=== PATIENT | male | born 1965 | race Hispanic/Latino ===

== ENCOUNTER 2022-08-22 14:04 | Emergency (ER) | payer SELFPAY ==
--- OUTSIDE RECORDS SUMMARY | 2022-08-22 14:07 | XMS REPORT | Continuity of Care Document ---
:1965 Author Organization [facility] t Address [address] [place] [address] [address] [place] [address] Care Team Providers Name Role Phone Unavailable Unavailable Unavailable Payers Payer Name Policy Type Policy Number Effective Date Expiration Date S ource Problems This patient has no known problems. Allergies, Adverse Reactions, Alerts Allergy Allergy Status Severity Reaction(s) Onset Inactive Treating Comm ents Source Name Type Date Date Clinician No Known DA Active U 2018-03 [facility] 0 00:00: [address] Medications This patient has no known medications. Procedures This patient has no known procedures. Results Test Description Test Time Test Comments Results Result Comments Source CBC W/AUTO DIFF 2019-01-22 22:04:00 Test Item Value Reference Range Interpretation Comme nts WHITE BLOOD CELL (test code = WBC) 5.9 K/MM3 3.8-9.8 N RED BLOOD CELL (test code = RBC) 4.23 M/MM3 3.95-5.67 N HEMOGLOBIN (test code = HGB) 10.4 G/DL 12.4-16.7 L HEMATOCRIT (test code = HCT) 34.8 % 35.9-49.5 L MEAN CELL VOLUME (test code = MCV) 82 fL 81.7-96.1 N MEAN CELL HGB (test code = MCH) 24.6 pg 27.6-33.2 L MEAN CELL HGB CONCETRATION (test code = MCHC) 29.9 % 32.9-35. 5 L RED CELL DISTRIBUTION WIDTH (test code = RDW) 22.2 % 12.1-15. 2 H PLATELET COUNT (test code = PLT) 240 K/MM3 129-368 N MEAN PLATELET VOLUME (test code = MPV) 9.1 fl 7.4-10.4 N NEUTROPHIL % (test code = NT%) 48.1 % 43-75 N IMMATURE GRANULOCYTE % (test code = IG%) 0.2 % 0.0-2.0 N LYMPHOCYTE % (test code = LY%) 33.8 % 14-44 N MONOCYTE % (test code = MO%) 15.0 % 4-13 H EOSINOPHIL % (test code = EO%) 2.2 % 0-6 N BASOPHIL % (test code = BA%) 0.7 % 0-2 N NUCLEATED RBC % (test code = NRBC%) 0.0 % 0-1.0 N NEUTROPHIL # (test code = NT#) 2.81 K/mm3 2.0-7.6 N IMMATURE GRANULOCYTE # (test code = IG#) 0.01 x10 3/uL 0-0.03 N LYMPHOCYTE # (test code = LY#) 1.98 K/mm3 1.0-3.8 N MONOCYTE # (test code = MO#) 0.88 K/mm3 0.1-0.8 H EOSINOPHIL # (test code = EO#) 0.13 K/mm3 0.0-0.2 N BASOPHIL # (test code = BA#) 0.04 K/mm3 0.0-0.2 N NUCLEATED RBC # (test code = NRBC#) 0.00 K/mm3 0.0-0.1 N DIFFERENTIAL [id number] 22:04:00 Test Item Value Reference Range Interpretation Comments RBC MORPHOLOGY REQUIRED (test code = ABNORMAL RBCM) POLYCHROMASIA (test code = POLC) FEW NONE HYPOCHROMIA (test code = HYPO) MODERATE NONE ANISOCYTOSIS (test code = ANISO) MODERATE NONE MACROCYTOSIS (test code = MACR) FEW NONE TARGET CELLS (test code = TGT) FEW NONE PLATELET ESTIMATE (test code = ADEQUATE ADEQUATE PLTEST) PLATELET MORPHOLOGY (test code = NORMAL NORMAL PLTMORPH) - CT ABD PELVIS W/O [id number] 21:25:00 Patient Name: ANGI SALEEM Unit No: [id number] EXAMS: CPT CODE: [id number] CT ABD PELVIS W/O CONT 28430 Location: T 18 CT of the abdomen and CT of the pelvis , 01/22/19 CLINICAL HISTORY: Syncope, abdominal pain, emergency room presentation, intoxication COMPARISON EXAM : None of the abdomen or pelvis TECHNIQUE: A CT scan of the abdomen and pelvis conducted in the axial plane scanning utilizing contiguous 2.5 mm slice thickness from the lower lungs through the pubic symphysis without IV or enteric contrast with 2D coronal reformatted images acquired. This was acquired using MPR software on the CT workstation. Renal stone protocol was used. The examination was performed on an updated helical CTscan using utilizing low-dose radiation technique. Automatic exposure technique was utilized to reduce radiation dose. FINDINGS: No obstructive nephropathy or radio-opaque calculi seen. The liver demonstrates normal size, but has a somewhat serrated margins and prominence of the caudate lobe of concern for cirrhosis. No definite liver mass is seen on this noncontrast exam. The gallbladder appears to be mildly distended and with mild inflammatory changes adjacent to the gallbladder fossa of concern for possible cholecystitis. Consideration of sonography would be helpful for further assessment if indicated. Trace amount of fluid adjacent to the gallbladder fossa may be related to cirrhosis and liverfailure versus even related to duodenitis. Air-fluid levels identified in the right-sided colon. No significant biliary distention is seen. The spleen is normal in size without focal defects. The adrenal glands are unremarkable without masses. The pancreas demonstrates no abnormality on this non contrast exam. There are no peripancreatic fluid collections. Bowel gas pattern is nonobstructed and nonspe cific without pneumoperitoneum or pneumatosis. Assessment of bowel pathology is limited given lack of IV and enteric contrast w/o abscess or definite abnormality identified. Both the abdominal aorta and IVC are unremarkable. There is no significant adenopathy within the abdomen. The bases of the lungs are clear. [facility] NAME: ANGI SALEEM [id number] PHYS: [place] [address] : 1965 AGE: 53 SEX: M LOC: SCAR PHONE #: [phone] EXAM DATE: 01/22/2019 STATUS: REG ER FAX #: [phone] RAD #: D/C DT PAGE 1 Signed Report (CONTINUED) Patient Name: ANGI SALEEM Unit No: [id number] EXAMS: CPT CODE: [id number] CT ABD PELVIS W/O CONT 32313 (Continued) The pelvic contents are unremarkable without mass. No focal fluid collections or adenopathy. IMPRESSION: Findings of concern for possible cirrhosis without definite liver mass. The gallbladder is mildly distended with questionable pericholecystic inflammatory changes. Consideration gallbladder sonography if indicated may be helpful for further assessment Electronically Signedby Mayco Mayorga MD on 01/22/2019 at 2124 Reported and signed by: Mayco Mayorga MD CC: Amari Barron MD Technologist: Donna Ty RT(R)(CT); Oscar Fairchild CTDI: DLP: Trnscrpt: 01/22/2019 (2124) DominiqueDAS6 MAD[facility] Yee NAME: ANGI SALEEM PHYS: [place] [address] : 1965 AGE: 53 SEX: M LOC: [employer] PHONE #: [phone] EXAM DATE: 01/22/2019 STATUS: REG ER FAX #: [phone] RAD #: D/C DT PAGE 2 Signed Report Patient Name: ANGI SALEEM Unit No: [id number] EXAMS: CPT CODE: [id number] CT ABD PELVIS W/O CONT 41047 (Continued) Orig Print D/T: S: 01/22/2019 (2127) [facility] NAME: ANGI SALEEM PHYS: MIKEGABBY[place] [address] : 1965 AGE: 53 SEX: M LOC: [employer] PHONE #: [phone] EXAM DATE: 01/22/2019 STATUS: REG ER FAX #: RAD #: D/C DT PAGE 3 Signed Report- CT CHEST W/O [id number] 21:20:00 Patient Name: ANGI SALEEM Unit No: [id number] EXAMS: CPT CODE: [id number] CT CHEST W/O CONTRAST 90512 Location: T18 Chest CT , 01/22/19 TECHNIQUE: Chest CT without IV contrast was performed on a helical scanner. Contiguous direct 5mm axial slice thickness acquired, scanning from thoracic inlet through the diaphragms.. The examination was performed on updated helical CT scanner utilizing low-dose radiation technique. Automatic exposure control was utilized to reduce radiation dosage CLINICAL HISTORY: Syncope, intoxication. Emergency room presentation, chest pain COMPARISON EXAMS: Chest x-ray exam of 01/22/19 FINDINGS: Examination of the lung parenchyma unremarkable. No endobronchial lesion orpleura- based abnormality is seen. No infiltrates are identified. No pathological mediastinal or hilar adenopathy is not seen. Heart size within normal limits. No cardiac decompensation seen. Upper abdominal structures visualized are unremarkable. IMPRESSION: No acute cardiopulmonary process at 2119 Reported and signed by: Mayco Mayorga MD CC: Amari Barron MD Technologist: RT Renuka(R)(CT); Oscar Fairchild CTDI: DLP: Trnscrpt: 01/22/2019 (2119) t.SDR.DAS6 [facility] NAME: ANGI SALEEM [id number] PHYS: [place] [address] : 1965 AGE: 53 SEX: M LOC: [employer] PHONE #: [phone] EXAM DATE: 01/22/2019 STATUS: REG ER FAX #: [phone] RAD #: D/C DT PAGE 1 Signed Report Patient Name: ANGI SALEEM Unit No: [id number] EXAMS: CPT CODE: [id number] CT CHEST W/O CONTRAST 35166 (Continued) Orig Print D/T: S: 01/22/2019 (2122) [facility] NAME: ANGI SALEEM PHYS: [place] [address] : 1965 AGE: 53 SEX: M LOC: SCAR PHONE #: [phone] EXAM DATE: 01/22/2019 STATUS: REGER FAX #: [phone] RAD #: D/C DT PAGE 2 Signed Report- CT HEAD/BRAIN W/O CONT 2019-01-22 21:14:00 Patient Name: ANGI SALEEM Unit No: [id number] EXAMS: CPT CODE: [id number] CT HEAD/BRAIN W/O CONT 89619 CLINICAL HISTORY: Syncope, intoxication. CT brain, unenhanced. Reformatted sagittal and coronal images. COMPARISON: None. Automated exposure control, iterative reconstruction technique, and/or adjustment of mA and/or kV according to patient's size was utilized for optimum radiation dose reduction. An unenhanced study of the brain was performed. The cortical pattern is symmetric. No focal areasof edema or hemorrhage.. No hemorrhage, mass effect, or findings of CVA can be seen. No evidence of ventricular shift. The posterior fossa structures appear to be intact. Bone window settings do not show any evidence of skull fracture. Visualized sinuses appear to be clear. . IMPRESSION: No acute appearing intracranial abnormality. Location: U19 at 2114 Reported and signed by: Kevin Valentin MD CC: Amari Barron MD Technologist: RT Renuka(R)(CT); Oscar Fairchild CTDI: DLP: Trnscrpt: 01/22/2019 (2113) [facility] NAME: ANGI SALEEM [id number] PHYS: [place] [address] : 1965 AGE: 53 SEX: M LOC: SCAR PHONE #: [phone] EXAM DATE: 01/22/2019 STATUS: REG ER FAX #: [phone] RAD #: D/C DT PAGE 1 Signed Report Patient Name: ANGI SALEEM Unit No: [id number] EXAMS: CPT CODE: [id number] CT HEAD/BRAIN W/O CONT 11237 (Continued) Orig Print D/T: S: 01/22/2019 (2116) [facility] NAME: ANGI SALEEM [id number] PHYS: CAROL Oreillyyvon[place] [address] : 1965 AGE: 53 SEX: M LOC: [facility] PHONE #: [phone] EXAM DATE: 01/22/2019 STATUS: REG ER FAX #: [phone] RAD #: D/C DT PAGE 2 Signed Report- CT C- SPINE W/O [id number] 21:05:00 Patient Name: ANGI SALEEM Unit No: [id number] EXAMS: CPT CODE: [id number] CT C-SPINE W/O CONT 45540 EXAM: - CT C- SPINE W/O CONT HISTORY: SYNCOPE Location code:C3 TECHNIQUE: Axial tomograms throughthe cervical spine were obtained without intravenous contrast. Sagittal and coronal reformatted images are provided. One or more of the following dose reduction techniques were used: Automated exposurecontrol, adjustment of the mA and/or kV according to patient size, and/or utilization of iterative re construction technique. DLP: 503.33 mGy-cm. COMPARISON: None available time of interpretation. FINDINGS: Vertebral heights and alignment are maintained. No acute fracture or subluxation. The prevertebral soft tissues are within normal limits. The visualized soft tissues of the neck show no significant abnormalities. Degenerative disc disease and facet arthropathy is present at multiple levels. IMPRESSION: 1. No acute osseous abnormality with other findings as above. at 2105 Reported and signed by: Piero Hernandez MD CC: Aamri Barron MD Technologist: RT Renuka(R)(CT); Oscar Fairchild CTDI: DLP: Trnscrpt: 01/22/2019 (2104) Cedric.CB5 [facility] NAME: ANGI SALEEM [id number] PHYS: CAROL [place] [address] : 1965 AGE: 53 SEX: M LOC: [employer] PHONE #: [phone] EXAM DATE: 01/22/2019 STATUS: REG ER FAX #: [phone] RAD #: D/C DT PAGE 1 Signed Report Patient Name: ANGI SALEEM Unit No: [id number] EXAMS: CPT CODE: [id number] CT C-SPINE W/O CONT 97881 (Continued) Orig Print D/T: S: 01/22/2019 (2108) [facility] NAME: ANGI SALEEM [id number] PHYS: [place] [address] : 1965 AGE: 53 SEX: M LOC: SCAR PHONE #: [phone] EXAM DATE: 01/22/2019 STATUS: REG ER FAX #: [phone] RAD #:D/C DT PAGE 2 Signed ReportBASIC METABOLIC PANEL 2019-01-22 20:42:00 Test Item Value Reference Range Interpretation Comments SODIUM (test code = 142 MMOL/L 137-145 N NA) POTASSIUM (test code = 3.9 MMOL/L 3.5-5.1 N K) CHLORIDE (test code = 108 MMOL/L 98-107 H CL) CARBON DIOXIDE (test 22 MMOL/L 22-30 N code = CO2) GLUCOSE (test code = 141 MG/DL 74-106 H GLU) BLOOD UREA NITROGEN 3 MG/DL 9-20 L (test code = BUN) GLOMERULAR FILTRATION > 60 Report ing units: RATE (test code = GFR) ml/mi n/1.73 m2 (Modified MDRD Formula)Referen ce Range: > or = 6 0 ml/min/1.73 m2 CREATININE (test code 0.50 MG/DL 0.66-1.25 L = CREAT) CALCIUM (test code = 8.7 MG/DL 8.4-10.2 N CA) NT PRO-BRAIN NATRIURETIC [id number] 20:42:00 Test Item Value Reference Range Interpretation Comments NT PRO-BRAIN 33.3 pg/mL 0-125 N ------ NATRIURETIC PEPTI (test code = PROBNP) -- NT P RO-BNP IS THE REPLACEMENT ASS AY FOR BNP. ------ ------ -- [id number] 20:42:00 Test Item Value Reference Range Interpretation Comments TROPONIN-I (test code = TROPI) < 0.012 NG/ML 0.012-0.033 L [id number] 20:42:00 Test Item Value Reference Range Interpretation Comments ALCOHOL (test code = 262.0 MG/DL <10 HH CALLED TO ROLY Tejeda [facility]) & READBACK ON 01/22/19 AT 203 4 BY Nii Rea - XR SHOULDER 2+V [id number] 20:42:00 Patient Name: ANGI SALEEM Unit No: [id number] EXAMS: CPT CODE: [id number] XR SHOULDER 2+[place] [address] LEFT SHOULDER 3 VIEWS LOCATION: R16 CLINICAL HISTORY: Syncope. COMPARISON: No previous exam available. FINDINGS: No acute fracture, dislocation, or radiopaque foreign body is found involving the left shoulder. The left humerus is well-aligned with respect to the glenoid. IMPRESSION: No acute osseous abnormality involving the left shoulder. [id number] Reported and signed by: Mariya Reynoso MD CC: Amari Barron MD Technologist: Mague Zuñiga, RT(R) Transcrpt Date/Tm/Trnsp: 01/22/2019 (2041) Cedric.TYSONL Orig Print D/T: S: 01/22/2019 (2044) [facility] NAME: ANGI SALEEM [id number] PHYS: [place] [address] : 1965 AGE: 53 SEX: M LOC: SCAR PHONE #: [phone] EXAM DATE: 01/22/2019 STATUS: REG ER FAX #: [phone] RADIOLOGY NO: PAGE 1 Signed Report - XR CHEST [id number] 20:41:00 Patient Name: ANGI SALEEM Unit No: [id number] EXAMS: CPT CODE: [id number] XR CHEST 1V 15386 APVIEW OF THE CHEST LOCATION: R16 CLINICAL HISTORY: Syncope. COMPARISON: No previous exam available. FINDINGS: The cardiomediastinal shadow is within normal limits. The lungs are clear. No pleural fluids. No acute bony abnormality is found. IMPRESSION: Unremarkable radiographic study of the chest. at 2040 Reported and signed by: Mariya Reynoso MD CC:Amari Barron MD Technologist: Mague Zuñiga, RT(R) Transcrpt Date/Tm/Trnsp: 01/22/2019 (2040) t.SDR.JSL Orig Print D/T: S: 01/22/2019 (2043) [facility] NAME: ANGI SALEEM [id number] PHYS: [place] [address] : 1965 AGE: 53 SEX: M LOC: SCAR PHONE #: [phone] EXAM DATE: 01/22/2019 STATUS: [facility] ER FAX #: [phone] RADIOLOGY NO: PAGE 1 Signed ReportBASIC METABOLIC [id number] 20:39:00 Test Item Value Reference Range Interpretation Comments SODIUM (test code = 142 MMOL/L 137-145 N NA) POTASSIUM (test code = 3.9 MMOL/L 3.5-5.1 N K) CHLORIDE (test code = 108 MMOL/L 98-107 H CL) CARBON DIOXIDE (test 22 MMOL/L 22-30 N code = CO2) GLUCOSE (test code = 141 MG/DL 74-106 H GLU) BLOOD UREA NITROGEN 3 MG/DL 9-20 L (test code = BUN) GLOMERULAR FILTRATION > 60 Report ing units: RATE (test code = GFR) ml/mi n/1.73 m2 (Modified MDRD Formula)Referen ce Range: > or = 6 0 ml/min/1.73 m2 CREATININE (test code 0.50 MG/DL 0.66-1.25 L = CREAT) CALCIUM (test code = 8.7 MG/DL 8.4-10.2 N CA) NT PRO-BRAIN NATRIURETIC [id number] 20:39:00 Test Item Value Reference Range Interpretation Comments NT PRO-BRAIN 33.3 pg/mL 0-125 N ------ NATRIURETIC PEPTI (test code = PROBNP) -- NT P RO-BNP IS THE REPLACEMENT ASS AY FOR BNP. ------ ------ -- [id number] 20:39:00 Test Item Value Reference Range Interpretation Comments TROPONIN-I (test code = TROPI) NG/ML 0.0-0.045 [id number] 20:39:00 Test Item Value Reference Range Interpretation Comments ALCOHOL (test code = 262.0 MG/DL <10 HH CALLED TO ROLY Tejeda [facility]) & READBACK ON 01/22/19 AT 203 4 BY Nii Rea - XR HUMERUS 2+V [id number] 20:38:00 Patient Name: ANGI SALEEM Unit No: [id number] EXAMS: CPT CODE: [id number] XR HUMERUS 2+[place] [address] Location code: B2 Right humerus 2 views Indication: SYNCOPE Comparison: none Findings: No evidence of fracture, subluxation or dislocation. Soft tissues are unremarkable. Impression: 1. Normal exam. at 2037 Reported and signed by: Jayesh Cevallos M.D. CC: Amari Braron MD Technologist: Mgaue Zuñiga RT(R) Transcrpt Date/Tm/Trnsp: 01/22/2019 (2037) [email or web address] Orig Print D/T: S: 01/22/2019 (2040) [facility] NAME:ANGI SALEEM [address] PHYS: NEVAEHNadia Teresita [place]rice[place] [address] : 1965 AGE: 53 SEX: M LOC: SCAR PHONE #: [phone] EXAM DATE: 01/22/2019 STATUS: PRE ER FAX #: [phone] RADIOLOGY NO: PAGE 1 Signed ReportBASIC METABOLIC [id number] 20:35:00 Test Item Value Reference Range Interpretation Comments SODIUM (test code = 142 MMOL/L 137-145 N NA) POTASSIUM (test code = 3.9 MMOL/L 3.5-5.1 N K) CHLORIDE (test code = 108 MMOL/L 98-107 H CL) CARBON DIOXIDE (test 22 MMOL/L 22-30 N code = CO2) GLUCOSE (test code = 141 MG/DL 74-106 H GLU) BLOOD UREA NITROGEN 3 MG/DL 9-20 L (test code = BUN) GLOMERULAR FILTRATION > 60 Report ing units: RATE (test code = GFR) ml/mi n/1.73 m2 (Modified MDRD Formula)Referen ce Range: > or = 6 0 ml/min/1.73 m2 CREATININE (test code 0.50 MG/DL 0.66-1.25 L = CREAT) CALCIUM (test code = 8.7 MG/DL 8.4-10.2 N CA) NT PRO-BRAIN NATRIURETIC [id number] 20:35:00 Test Item Value Reference Range Interpretation Comments NT PRO-BRAIN NATRIURETIC PEPTI (test pg/mL 0-125 code = PROBNP) [id number] 20:35:00 Test Item Value Reference Range Interpretation Comments TROPONIN-I (test code = TROPI) NG/ML 0.0-0.045 [id number] 20:35:00 Test Item Value Reference Range Interpretation Comments ALCOHOL (test code = 262.0 MG/DL <10 HH CALLED TO ROLY Tejeda [facility]) & READBACK ON 01/22/19 AT 203 4 BY Nii Rea BASIC METABOLIC [id number] 20:29:00 Test Item Value Reference Range Interpretation Comments SODIUM (test code = 142 MMOL/L 137-145 N NA) POTASSIUM (test code = 3.9 MMOL/L 3.5-5.1 N K) CHLORIDE (test code = 108 MMOL/L 98-107 H CL) CARBON DIOXIDE (test 22 MMOL/L 22-30 N code = CO2) GLUCOSE (test code = MG/DL 74-106 GLU) BLOOD UREA NITROGEN MG/DL 9-20 (test code = BUN) GLOMERULAR FILTRATION > 60 Report ing units: RATE (test code = GFR) ml/mi n/1.73 m2 (Modified MDRD Formula)Referen ce Range: > or = 6 0 ml/min/1.73 m2 CREATININE (test code 0.50 MG/DL 0.66-1.25 L = CREAT) CALCIUM (test code = MG/DL 8.7-9.7 CA) NT PRO-BRAIN NATRIURETIC [id number] 20:29:00 Test Item Value Reference Range Interpretation Comments NT PRO-BRAIN NATRIURETIC PEPTI (test pg/mL 0-125 code = PROBNP) [id number] 20:29:00 Test Item Value Reference Range Interpretation Comments TROPONIN-I (test code = TROPI) NG/ML 0.0-0.045 [id number] 20:29:00 Test Item Value Reference Range Interpretation Comments ALCOHOL (test code = ALC) MG/DL <10 BASIC METABOLIC [id number] 20:27:00 Test Item Value Reference Range Interpretation Comments SODIUM (test code = NA) 142 MMOL/L 137-145 N POTASSIUM (test code = K) 3.9 MMOL/L 3.5-5.1 N CHLORIDE (test code = CL) 108 MMOL/L 98-107 H CARBON DIOXIDE (test code = CO2) MMOL/L 22-30 GLUCOSE (test code = GLU) MG/DL 74-106 BLOOD UREA NITROGEN (test code = MG/DL 9-20 BUN) GLOMERULAR FILTRATION RATE (test code = GFR) CREATININE (test code = CREAT) MG/DL 0.66-1.25 CALCIUM (test code = CA) MG/DL 8.7-9.7 NT PRO-BRAIN NATRIURETIC [id number] 20:27:00 Test Item Value Reference Range Interpretation Comments NT PRO-BRAIN NATRIURETIC PEPTI (test pg/mL 0-125 code = PROBNP) [id number] 20:27:00 Test Item Value Reference Range Interpretation Comments TROPONIN-I (test code = TROPI) NG/ML 0.0-0.045 [id number] 20:27:00 Test Item Value Reference Range Interpretation Comments ALCOHOL (test code = ALC) MG/DL <10 BASIC METABOLIC [id number] 20:26:00 Test Item Value Reference Range Interpretation Comments SODIUM (test code = NA) MMOL/L 137-145 POTASSIUM (test code = K) MMOL/L 3.5-5.1 CHLORIDE (test code = CL) 108 MMOL/L 98-107 H CARBON DIOXIDE (test code = CO2) MMOL/L 22-30 GLUCOSE (test code = GLU) MG/DL 74-106 BLOOD UREA NITROGEN (test code = MG/DL 9-20 BUN) GLOMERULAR FILTRATION RATE (test code = GFR) CREATININE (test code = CREAT) MG/DL 0.66-1.25 CALCIUM (test code = CA) MG/DL 8.7-9.7 NT PRO-BRAIN NATRIURETIC [id number] 20:26:00 Test Item Value Reference Range Interpretation Comments NT PRO-BRAIN NATRIURETIC PEPTI (test pg/mL 0-125 code = PROBNP) [id number] 20:26:00 Test Item Value Reference Range Interpretation Comments TROPONIN-I (test code = TROPI) NG/ML 0.0-0.045 [id number] 20:26:00 Test Item Value Reference Range Interpretation Comments ALCOHOL (test code = ALC) MG/DL <10 CBC W/AUTO [id number] 20:18:00 Test Item Value Reference Range Interpretation Comments WHITE BLOOD CELL (test code = 5.9 K/MM3 3.8-9.8 N WBC) RED BLOOD CELL (test code = 4.23 M/MM3 3.95-5.67 N RBC) HEMOGLOBIN (test code = HGB) 10.4 G/DL 12.4-16.7 L HEMATOCRIT (test code = HCT) 34.8 % 35.9-49.5 L MEAN CELL VOLUME (test code = 82 fL 81.7-96.1 N MCV) MEAN CELL HGB (test code = MCH) 24.6 pg 27.6-33.2 L MEAN CELL HGB CONCETRATION 29.9 % 32.9-35.5 L (test code = MCHC) RED CELL DISTRIBUTION WIDTH 22.2 % 12.1-15.2 H (test code = RDW) PLATELET COUNT (test code = 240 K/MM3 129-368 N PLT) MEAN PLATELET VOLUME (test code 9.1 fl 7.4-10.4 N = MPV) NEUTROPHIL % (test code = NT%) 48.1 % 43-75 N IMMATURE GRANULOCYTE % (test 0.2 % 0.0-2.0 N code = IG%) LYMPHOCYTE % (test code = LY%) 33.8 % 14-44 N MONOCYTE % (test code = MO%) 15.0 % 4-13 H EOSINOPHIL % (test code = EO%) 2.2 % 0-6 N BASOPHIL % (test code = BA%) 0.7 % 0-2 N NUCLEATED RBC % (test code = 0.0 % 0-1.0 N NRBC%) NEUTROPHIL # (test code = NT#) 2.81 K/mm3 2.0-7.6 N IMMATURE GRANULOCYTE # (test 0.01 x10 3/uL 0-0.03 N code = IG#) LYMPHOCYTE # (test code = LY#) 1.98 K/mm3 1.0-3.8 N MONOCYTE # (test code = MO#) 0.88 K/mm3 0.1-0.8 H EOSINOPHIL # (test code = EO#) 0.13 K/mm3 0.0-0.2 N BASOPHIL # (test code = BA#) 0.04 K/mm3 0.0-0.2 N NUCLEATED RBC # (test code = 0.00 K/mm3 0.0-0.1 N NRBC#) DIFFERENTIAL [id number] 20:18:00 Test Item Value Reference Range Interpretation Comments RBC MORPHOLOGY REQUIRED (test code = RBCM) PLATELET ESTIMATE (test code = PLTEST) ADEQUATE PLATELET MORPHOLOGY (test code = NORMAL PLTMORPH) CBC W/AUTO [id number] 20:18:00 Test Item Value Reference Range Interpretation Comments WHITE BLOOD CELL (test code = 5.9 K/MM3 3.8-9.8 N WBC) RED BLOOD CELL (test code = 4.23 M/MM3 3.95-5.67 N RBC) HEMOGLOBIN (test code = HGB) 10.4 G/DL 12.4-16.7 L HEMATOCRIT (test code = HCT) 34.8 % 35.9-49.5 L MEAN CELL VOLUME (test code = 82 fL 81.7-96.1 N MCV) MEAN CELL HGB (test code = MCH) 24.6 pg 27.6-33.2 L MEAN CELL HGB CONCETRATION 29.9 % 32.9-35.5 L (test code = MCHC) RED CELL DISTRIBUTION WIDTH 22.2 % 12.1-15.2 H (test code = RDW) PLATELET COUNT (test code = 240 K/MM3 129-368 N PLT) MEAN PLATELET VOLUME (test code 9.1 fl 7.4-10.4 N = MPV) NEUTROPHIL % (test code = NT%) 48.1 % 43-75 N IMMATURE GRANULOCYTE % (test 0.2 % 0.0-2.0 N code = IG%) LYMPHOCYTE % (test code = LY%) 33.8 % 14-44 N MONOCYTE % (test code = MO%) 15.0 % 4-13 H EOSINOPHIL % (test code = EO%) 2.2 % 0-6 N BASOPHIL % (test code = BA%) 0.7 % 0-2 N NUCLEATED RBC % (test code = 0.0 % 0-1.0 N NRBC%) NEUTROPHIL # (test code = NT#) 2.81 K/mm3 2.0-7.6 N IMMATURE GRANULOCYTE # (test 0.01 x10 3/uL 0-0.03 N code = IG#) LYMPHOCYTE # (test code = LY#) 1.98 K/mm3 1.0-3.8 N MONOCYTE # (test code = MO#) 0.88 K/mm3 0.1-0.8 H EOSINOPHIL # (test code = EO#) 0.13 K/mm3 0.0-0.2 N BASOPHIL # (test code = BA#) 0.04 K/mm3 0.0-0.2 N NUCLEATED RBC # (test code = 0.00 K/mm3 0.0-0.1 N NRBC#) DIFFERENTIAL [id number] 20:18:00 Test Item Value Reference Range Interpretation Comments RBC MORPHOLOGY REQUIRED (test code = RBCM) PLATELET ESTIMATE (test code = PLTEST) ADEQUATE PLATELET MORPHOLOGY (test code = NORMAL PLTMORPH) Notes Date/Time Note Provider Source 2019-01-22 19:54:00-00:[address] [facility] ([facility]) EMERGENCY PROVIDER REPORT REPORT#:[id number] REPORT STATUS: Signed DATE:01/22/19 TIME: 1953 PATIENT: ANGI SALEEM UNIT #: [id number] ROOM/BED: AGE: 53 SEX: M PCP PHYS: No Primary Care Physici an SERVICE AUTHOR: Amari Barron MD LOCATION: [facility] * ALL edits or amendments must be made on the citizenmade/[employer] document * HPI-Head Prob/Injury General Confirmed Patient Yes Patient Type New patient Initial Greet Date/Time 01/22/191943 Presentation Chief Complaint Blunt head trauma, Laceration Hx Obtained From Patient, Family )( Onset Occurred Today Symptom Duration Since onset Progression since Onset Unchanged Context of Onset EtOH use Caused by Fall after syncope Timing of Trauma Date of Trauma 01/22/19 Context: Occurred at Home Quality Painful Associated with Reports: Abdominal pain, Karen st pain, Dizziness, Headache, Loss of consciousness, Neck pain. Denies: Nausea, Speech abnormal, Vomi ting. 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 Per p t's daughter, pt had approx 4 beers, went to the restroom and had an unwitnessed syncopal episode, sustaining a laceration to the top of h is head with controlled bleeding when he struck the shower edge. Pt does not rec all all details of the fall, but states that he may have felt dizzy and fell forward. Pt is currently endorsing [place] G[place] and pain to the neck, L shoulder, L arm, L abdomen, and L chest wall. EMS placed bandages surrounding the pt's head an d placed the pt in a C-collar. No fever, chills, N/V /D, breathing abnormalities, urinary abnormaliti es, changes in vision/speech/ sensation, difficulty ambulating, or cold sx wer e reported. No blood thinners routine was reported. No other complaints are no rc for today. Portions of this section were scribed by Rm Álvarez on 01/22/19 at 2134 Risk-Head Prob/Injury Risk Stratification )( Bjorn Coma Score > Age 5 )( Bjorn Coma Score > Age 5 Response Value Eye Opening Open spontaneously (4) 4 Verbal Response Oriented (5) 5 Motor Response Obeys commands (6) 6 Total 15 )( Intracranial Bleed Risk factors reviewed, EtO H use Portions of this section were scribed by Rm Álvarez on 01/22/19 at 2134 Review of Systems ROS Statements All systems rev neg except as marked. Focused Review of Systems Constitutional Denies: Chills, Fever. Eyes Denies: Discharge bilat, Redness bilat. Ears/Nose/Throat Denies: Nasal congestion, Nose bleeding. GI Reports: Abdominal pain. Denies: Diarrhea, Nause a, Vomiting. Musculoskeletal Reports: Back pain, Extremit y pain (L arm), Joint pain (L shoulder), Neck pain. Denies: Extremity swelling, Joint swelling. Skin Denies: Abrasion, Rash. Neurologic Reports: Change LOC, Dizziness, Headache. Denies : Seizure, Shaking, Unable to speak, Vision change. Additional Review of Systems Respiratory Denies: Cough, non-productive, Cough, productive , Shortness of breath. Cardiovascular Reports: Chest pain. Denies: Edema. Male Denies: Urination decreased, Urination increased . Hematologic Reports: Bleeding. Denies: Bruising. Allergy/Immun Denies: Itching, Rhinorrhea, Sneezing. Portions of this section were scribed by Rm Álvarez on 01/22/19 at 2134 Past Medical History - Adult Stated Complaint SYNCOPAL EPISODE WITH ETOH Allergies Coded Allergies: No Known Allergies (01/22/19) Home Medications Reported Medications No Known Home Medications Pt reports no significant: Past medical history, Past surgical history, Family history Additional Medical History None Additional Surgical History None Pt reports no Fam Hx pert to chief complaint. Alcohol Use Denies EtOH use Drug Use Denies recreational drugs Smoking status for patients 13 years old or olde r: Unknown,if ever smoked Other Social History Local resident Ambulatory Status Independent Portions of this section were scribed by Rm Álvarez on 01/22/19 at 1954 Physical Exam Vital Signs Vital Signs First Documented: Result Date Time Pulse Ox 98 01/22 2034 B/P 136/72 01/22 2034 B/P Mean 93 01/22 2034 O2 Delivery Room air 01/22 2034 Temp 36.5 01/22 2034 Pulse 92 01/22 2034 Resp 24 01/22 2034 Last Documented: Result Date Time Pulse Ox 98 01/22 2034 B/P 136/72 01/22 2034 B/P Mean 93 01/22 2034 O2 Delivery Room air 01/22 2034 Temp 36.5 01/22 2034 Pulse 92 01/22 2034 Resp 24 01/22 2034 Review of Vital Signs Reviewed Focused PE General/Const General/Const Awake, Alert, No acute distress, Cooperative, Not toxic appearing MS Head Head Normocephalic Text/Dict Notes L-shaped laceration at the frontal scalp Eyes Eyes PERRL (1 mm bilaterally), Conjunctiva NL Ears/Nose/Throat Ears/Nose/Throat Atraumatic, Airway patent, Muc ous membranes moist Text/Dict Notes No blood in the nares or mouth MS Neck Neck Supple, Full range of motion, No tracheal deviation Text/Dict Notes Cervical TTP Resp/Chest Respiratory/Chest Breath sounds NL, Breath soun ds = bilat, No respiratory distress, No rales, No rhonchi, No wheezing Text/Dict Notes Left chest wall TTP Cardiovascular Cardiovascular Heart rate NL, Regular rhythm, H eart sounds NL, No gallop, No murmurs, No rubs, Cap refill not delayed, Pulses = bilaterally (1+ radial) MS Upper Extrem Upper Extremity/MS Atraumatic, Full range of mo tion, No swelling Text/Dict Notes TTP to the L shoulder and L humerus MS Lower Extrem Lower Ext/Pelvis/MS Atraumatic, Inspection NL, Full range of motion, No swelling Skin Skin Warm, Dry, Intact Neurologic Neurologic Oriented X3, Speech NL, No m otor deficits, No sensory deficits, CN II - XII intact Psychiatric Psychiatric Affect NL, Mood NL Additional PE Abdomen/GI Abdomen/GI Soft, No guarding, No rebound, No di stention Tenderness/Guarding/Rebound Tender LUQ, Tender LLQ. MS Back Back Inspection NL, Full range of motion Portions of this section were scribed by Rm Álvarez on 01/22/19 at 2134 Interpretation Diagnostics Lab Results Interpretation Results Laboratory Tests 01/22/191999: [Embedded Image Not Available] Laboratory Tests: 01/23 2000 Chemistry Sodium (137 - 145 MMOL/L) 142 Potassium (3.5 - 5.1 MMOL/L) 3.9 Chloride (98 - 107 MMOL/L) 108 H Carbon Dioxide (22 - 30 MMOL/L) 22 BUN (9 - 20 MG/DL) 3 L Creatinine (0.66 - 1.25 MG/DL) 0.50 L Glomerular Filtr Rate > 60 Glucose (74 - 106 MG/DL) 141 H Calcium (8.4 - 10.2 MG/DL) 8.7 Troponin I (0.012 - 0.033 NG/ML) < 0.012 L NT-Pro-B Natriuret Pep (0 - 125 pg/mL) 33.3 Hematology WBC (3.8 - 9.8 K/MM3) 5.9 RBC (3.95 - 5.67 M/MM3) 4.23 Hgb (12.4 - 16.7 G/DL) 10.4 L Hct (35.9 - 49.5 %) 34.8 L MCV (81.7 - 96.1 fL) 82 MCH (27.6 - 33.2 pg) 24.6 L MCHC (32.9 - 35.5 %) 29.9 L RDW (12.1 - 15.2 %) 22.2 H Plt Count (129 - 368 K/MM3) 240 MPV (7.4 - 10.4 fl) 9.1 Neut % (Auto) (43 - 75 %) 48.1 Lymph % (Auto) (14 - 44 %) 33.8 [place] % (Auto) (4 - 13 %) 15.0 H Eos % (Auto) (0 - 6 %) 2.2 Baso % (Auto) (0 - 2 %) 0.7 Neut # (Auto) (2.0 - 7.6 K/mm3) 2.81 Lymph # (Auto) (1.0 - 3.8 K/mm3) 1.98 [place] # (Auto) (0.1 - 0.8 K/mm3) 0.88 H Eos # (Auto) (0.0 - 0.2 K/mm3) 0.13 Baso # (Auto) (0.0 - 0.2 K/mm3) 0.04 Immature Gran % (0.0 - 2.0 %) 0.2 Nucleated RBC % (0 - 1.0 %) 0.0 Nucleated RBCs # (Man) (0.0 - 0.1 K/mm3) 0.00 Platelet Estimate (ADEQUATE) ADEQUATE Plt Morphology Comment (NORMAL) NORMAL Polychromasia (NONE) FEW Hypochromasia (NONE) MODERATE Anisocytosis (NONE) MODERATE Macrocytosis (NONE) FEW Target Cells (NONE) FEW Toxicology Ethyl Alcohol (<10 MG/DL) 262.0 *H Recent Impressions: RADIOLOGY - XR SHOULDER 2+V LT 01/22 2025 Report Impression - Status: SIGNED Entered: 01/22/20192044 IMPRESSION: No acute osseous abnormality involving the left shoulder. Impression By: Opal Reynoso MD RADIOLOGY - XR HUMERUS 2+V RT 01/22 2025 Report Impression - Status: SIGNED Entered: 01/22/20192040 Impression: 1. Normal exam. Impression By: Bulmaro Espinoza RADIOLOGY - XR CHEST 1V 01/22 2025 Report Impression - Status: SIGNED Entered: 01/22/20192043 IMPRESSION: Unremarkable radiographic study of the chest. Impression By: Opal Reynoso MD CAT SCAN - CT ABD PELVIS W/O CONT 01/22 2030 Report Impression - Status: SIGNED Entered: 01/22/20192127 IMPRESSION: Findings of concern for possible cirrhosis witho ut definite liver mass. The gallbladder is mildly distended with q uestionable pericholecystic inflammatory changes. Considerat ion gallbladder sonography if indicated may be helpful for [facility] er assessment Impression By: Prashanth Medina MD CAT SCAN - CT CHEST W/O CONTRAST 01/22 2030 Report Impression - Status: SIGNED Entered: 01/22/20192122 IMPRESSION: No acute cardiopulmonary process Impression By: Prashanth Medina MD CAT SCAN - CT C-SPINE W/O CONT 01/22 2030 Report Impression - Status: SIGNED Entered: 01/22/20192108 IMPRESSION: 1. No acute osseous abnormality with other findi ngs as above. Impression By: [email or web address] - Piero Hernandez MD CAT SCAN - CT HEAD/BRAIN W/O CONT 01/22 2030 Report Impression - Status: SIGNED Entered: 01/22/20192116 IMPRESSION: No acute appearing intracranial abno rmality. Location: [facility]19 Impression By: Loyda - Kevin Valentin MD Lab Imaging Statement Laboratory radiographic studies reviewed and con sidered in the medical decision-making. C-Collar Imaging Statement The patient presented to the emergency d epartment with a C-Collar in place. C- spine imaging has been completed with the C-Yesi ar in place and all seven critical vertebra are visualized. There is no in dication of fracture or other pathology. Therefore the C-Collar has been remov ed. Point of Care Testing Pulse Oximetry Pulse Ox % 98 On: Room air Interpretation Interpreted by me, Pulse oximetr y normal Time 2033 ECG #1 Interpretation ECG Documented in MUSE Yes Date 01/22/19 Time 2018 Interpreted by ED physician NL ECG Interpretation Normal rate, Normal sinus rhythm, No acute ischemic changes, No STEMI, Normal ST waves, Normal T wav es, Normal axis, Normal intervals Rate 90 Portions of this section were scribed by Rm Álvarez on 01/22/19 at 2134 Procedures Laceration Management #1 Time 2003 Procedure Performed by ED physician Consent/Setup/Site Prep Verified correct patient , Informed consent provided, Consent from patient, Time-out performed , Hand hygiene observed, Stand sterile technique )( Location of Wound Frontal scalp )( Wound Length (cm) 5.08 )( Debridement None Foreign Body Explore/Removal Explored for foreig n body, None found Undermining/Margins Flaps aligned Repair Skin Naeem (7) Post-Procedure/Complications Antibiotic oint whitney lied, Dressing applied, No complications, Condition improved, Tolerated pro cedure well, Patient stable Portions of this section were scribed by Rm Álvarez on 01/22/19 at 2003 Re-Evaluation MDM Re-Evaluation/Progress #1 Text/Dict Note Pt is feeling better with sx improved an d in NAD. Pt's daughter states that pt likely possesses gallbladder issues, but they do not wish to pursue it at this time. Pt's daughter also states that pt is stubb orn and does not take medications. Should pt need rx for N/V, pt's daughter already has some. Pt and pt's daughter do not want to wait for further imaging results and would like to be d/c home. ED return preca utions provided. Advised pt to keep C-collar on for the time being due to ongoin g neck tenderness. All questions were encouraged and answered. Pt and pt's daughter agree to plan of care. Time of Re-Eval 2148 Re-Eval Status Improved Re-Eval Neurologic Exam Aler t, Pt is back to baseline, Oriented X3, CN II - XII intact, Speech normal Eval Following Treatment Pt. feels better, Condi tion improved Pain Re-Evaluation Pain improved Exam Post Tx - General Active, Alert Exam Post Tx - Sys Review Lungs clear Plan Post Re-Eval Plan discharge ED Course Medication(s) Ordered Medication(s) Ordered: Central Nervous System Agents Sig/Calixto Start time Last Medication Dose Route Stop Time Status Admin Fentanyl Citrate 75 MCG X1ED STA 01/22 2005 DC 01/22 IV 01/22 Electrolytic, Caloric, And Keny Sig/Calixto Start time Last Medication Dose Route Stop Time Status Admin Sodium Chloride 1,000 ML BOLUS ONCE ONE 01/22 2 005 DC 01/22 IV 01/22 Portions of this section were scribed by Rm Álvarez on 01/22/19 at 2134 Patient Discharge Departure Vital Signs/Condition Vital Signs First Documented: Result Date Time Pulse Ox 98 01/22 2034 B/P 136/72 01/22 2034 B/P Mean 93 01/22 2034 O2 Delivery Room air 01/22 2034 Temp 36.5 01/22 2034 Pulse 92 01/22 2034 Resp 24 01/22 2034 Last Documented: Result Date Time Pulse Ox 98 01/22 2034 B/P 136/72 01/22 2034 B/P Mean 93 01/22 2034 O2 Delivery Room air 01/22 2034 Temp 36.5 01/22 2034 Pulse 92 01/22 2034 Resp 24 01/22 2034 All vital signs available at the time of this en try have been reviewed. Condition Stable Clinical Impression Clinical Impression Primary Impression: Alcohol intoxication Secondary Impressions: Scalp laceration, Syncope Disposition Decision Discharge )( Discharged to Home Yes )( Time 2151 )( Date 01/22/19 Discharge/Care Plan Counseled Regarding Diagnosi s, Lab results, Imaging studies, Alcohol cessation, Need for follow-up, When to return to ED Discharge Note I have spoken with the patie nt and/or caregivers. I have explained the patient's condition, diagnoses and kaley atment plan based on the information available to me at this time. I have answered the patient's and/ or caregiver's questions and addressed any concerns. The patient and/or careg richard have as good an understanding of the patient 's diagnosis, condition and treatment plan as can be expected at this point. The vital signs have bee n stable. The patient's condition is stable and appr opriate for discharge from the emergency department. The patient will pursue further outpatient evalu ation with the primary care physician or other designated or consulting phys durga as outlined in the discharge instructions. The patient and/or caregivers are agreeable to this plan of care and follow-up instructions have been exp lained in detail. The patient and/or caregivers have received these instructio ns in written format and have expressed an understanding of the discharge inst ructions. The patient and/or caregivers are aware that any significant change in condition or worsening of symptoms should prompt an immediate return to [facility] or the closest emergency department or a call to 911. Quality Measures Minor Blunt Head Trauma CT GCS 15, Drug/alcohol intoxication, Post-traumatic seizure, Criteria met, CT ordered Smoking Cessation Screened, non user Supervising Physician Note Scribe Statement Sylvia Álvarez, 01/22/192146, scribing for and in e presence of Dr. Amari Barron MD. Signed By: Sylvia Álvarez, 01/22/192146 Provider Scribed Statement I personally performed the s ervices described in this documentation and reviewed the documentation that was dictated to the scrib e(s) in my presence, and it accurately records my words and actions. Amari Chavez, 01/22/19 Portions of this section were scribed by Rm Álvarez on 01/22/19 at 2134 at 2204 RPT #:[id number] END OF REPORT
[2022-08-22] MEDS ORDERED: LEVALBUTEROL 1.25 MG/3 ML NEB ONE (14:21)
[2022-08-22] MEDS ORDERED: NA CHLORIDE 0.9% 1,000 ML ONE (14:21)
[2022-08-22 14:34] LABS: Protime INR 1.03
[2022-08-22 14:43] LABS: Bilirubin Total 0.4 mg/dL (0.2-1.0); Potassium 3.9 mEq/L (3.5-5.1)
[2022-08-22 14:44] LABS: Albumin 3.4 g/dL (3.4-5.0); Protein, Total 7.3 g/dL (6.4-8.2)
--- NOTE | 2022-08-22 15:04 | RAD REPORT ---
EXAM DESCRIPTION: RAD - Chest Single View - 08/22/2022 2:56 pm CLINICAL HISTORY: COPD, wheezing COMPARISON: No comparisons FINDINGS: Lines: None. Lungs: No evidence of edema or pneumonia. Pleural: No significant pleural effusions or pneumothorax. Cardiac: The heart size is within normal limits. Mediastinum: Within normal limits. Bones: No acute fractures. Other: None IMPRESSION: No acute cardiopulmonary disease.
--- NOTE | 2022-08-22 15:24 | RAD REPORT ---
EXAM DESCRIPTION: CT - Head C Spine Cap hRea Daniel - 08/22/2022 2:53 pm CLINICAL HISTORY: Trauma, head and neck injury. Chest, abdomen and pelvis pain. intoxicated, fall, AMS COMPARISON: No comparisons TECHNIQUE: CT head without contrast. CT cervical spine without contrast with coronal and sagittal reformatted images. CT chest, abdomen and pelvis with coronal and sagittal reformatted images of the spine. All CT scans are performed using dose optimization technique as appropriate and may include automated exposure control or mA/KV adjustment according to patient size. FINDINGS: CT HEAD WITHOUT CONTRAST: No intracranial hemorrhage, hydrocephalus or extra-axial fluid collection. No acute large vascular te rritory infarct. There is completely opacified right maxillary sinus. The calvarium is intact. CT CERVICAL SPINE WITHOUT CONTRAST: No fracture or subluxation. The prevertebral soft tissues are normal in thickness. CT CHEST, ABDOMEN, PELVIS: Thorax: Chest Wall: No abnormal mass Lungs: No acute abnormality. Pleura: No effusions or pneumothorax. Aracely/Mediastinum: No lymphadenopathy. Aorta/Pulmonary Arteries: Unremarkable Heart: Normal size. Abdomen/Pelvis: Liver: No acute abnormality or suspicious lesions. Biliary: No biliary ductal dilatation. Stomach: No significant focal abnormality. Duodenum: No significant focal abnormality. Pancreas: No significant abnormality. Spleen: No significant abnormality. Adrenal: No suspicious lesions. Kidney/ureter: No hydronephrosis. No renal calculi. Retroperitoneum: No retroperitoneal adenopathy. Vascular: No aneurysm. Bowel: No significant focal abnormality. Peritoneum: No ascites or free air. Bladder: Grossly unremarkable. Reproductive: No adnexal masses. Bones: No acute fracture. Other: n/a IMPRESSION: Negative for acute traumatic findings.
--- NOTE | 2022-08-22 16:34 | ER ---
Nurse's Notes [facility] Name: Delonte Landaverde Age: 57 yrs Sex: Male : 1965 Arrival Date: 08/22/2022 Time: 14:04 Bed 20 Private MD: Diagnosis: Unspecified injury of head, initial encounter;Alcohol use, unspecified with intoxication, uncomplicated Presentation: 08/22 14:13 Chief complaint: EMS states: [place] ETOH on jl7 board, pt with abrasion and swelling to right eye. Coronavirus screen: At this time, the client does not indicate any symptoms associated with coronavirus-19. Ebola Screen: No symptoms or risks identified at this time. Risk Assessment: Do you want to hurt yourself or someone else? Patient reports no desire to harm self or others. Onset of symptoms was August 22, 2022. Care prior to arrival: Medication(s) given: Normal saline infusion, 500 mL, IV initiated. 18 GA, in the right antecubital area. 14:13 Method Of Arrival: Ambulatory [facility] 14:13 Acuity: SARAH 3 jl7 16:46 Initial Sepsis Screen: Does the patient meet any 2 criteria? No. Patient's initial ld1 sepsis screen is negative. Does the patient have a suspected source of infection? No. Patient's initial sepsis screen is negative. Historical: - Allergies: 14:14 No Known Allergies; jl7 - PMHx: 14:14 COPD; jl7 - Immunization history:: Adult Immunizations unknown. - Social history:: Smoking status: unknown Patient uses alcohol, on a daily basis. at least 10 beers per day. - Family history:: not pertinent. - Hospitalizations: : No recent hospitalization is reported. Screenin:20 [facility] ED Fall Risk Assessment (Adult) History of falling in the last 3 months, ld1 including since admission Yes- single mechanical fall (1 pt). [facility] ED Fall Risk Assessment (Adult) Intoxicated or Sedated Yes (3 pts). Abuse screen: Denies threats or abuse. Denies injuries from another. Nutritional screening: No deficits noted. Tuberculosis screening: No symptoms or risk factors identified. Primary Survey: 16:45 NO uncontrolled hemorrhage observed. ld1 Assessment: 14:20 General: Appears in no apparent distress. comfortable, Behavior is calm, cooperative, ld1 appropriate for age. Pain: Denies pain. Neuro: Level of Consciousness is awake, alert, obeys commands, Oriented to person, place, time, situation. Cardiovascular: Capillary refill < 3 seconds Patient's skin is warm and dry. Rhythm is sinus rhythm. Respiratory: Airway is patent Respiratory effort is even, unlabored. GI: Abdomen is round non-distended. : No signs and/or symptoms were reported regarding the genitourinary system. EENT: No signs and/or symptoms were reported regarding the EENT system. Derm: No signs and/or symptoms reported regarding the dermatologic system. Musculoskeletal: No signs and/or symptoms reported regarding the musculoskeletal system. 16:09 Reassessment: Patient appears in no apparent distress at this time. No changes from ld1 previously documented assessment. Patient and/or family updated on plan of care and expected duration. Pain level reassessed. Patient is alert, oriented x 3, equal unlabored respirations, skin warm/dry/pink. Vital Signs: 14:20 BP 131 / 93; Pulse 90; Resp 18; Temp 98.3(TE); Pulse Ox 100% on Nebulizer Mask; Weight ld1 83.91 kg; Height 5 ft. 6 in. ; Pain 0/10; 14:38 BP 115 / 101; Pulse 102; Resp 18; Pulse Ox 100% on Nebulizer Mask; ld1 16:30 BP 151 / 125; Pulse 69; Resp 18; Pulse Ox 96% on R/A; ld1 14:20 Body Mass Index 29.86 (83.91 kg, 167.64 cm) ld1 14:20 Pain Scale: Adult ld1 ED Course: 14:06 Patient arrived in ED. rn 14:06 Kedar Prieto MD is Attending Physician. rn 14:12 Lauren Shah, BUTCH is Primary Nurse. ld1 14:14 Triage completed. jl7 14:14 Arm band placed on right wrist. EKG completed in triage. Results shown to MD. jl7 14:20 Patient has correct armband on for positive identification. Placed in gown. Bed in low ld1 position. Call light in reach. Side rails up X2. manager monitoring on. Pulse ox on. NIBP on. Door closed. Noise minimized. Warm blanket given. 14:20 No provider procedures requiring assistance completed. Maintain EMS IV. Dressing ld1 intact. Good blood return noted. Site clean \T\ dry. Gauge \T\ site: 20G RAC. 14:55 CT Traumagram (Head C Spine CAP W Con) In Process Unspecified. EDMS 14:58 XRAY Chest (1 view) In Process Unspecified. EDMS 16:46 IV discontinued, intact, bleeding controlled, No redness/swelling at site. ld1 Administered Medications: 14:20 Drug: Levalbuterol Inhalation 1.25 mg Route: Inhalation; ld1 14:20 Drug: NS 0.9% IV 1000 ml Route: IV; Rate: 1000 ml; Site: right antecubital; ld1 Medication: 14:20 VIS not applicable for this client. ld1 Outcome: 16:34 Discharge ordered by . rn 16:45 Discharged to home ambulatory, with family. ld1 16:45 Condition: stable 16:45 Discharge instructions given to patient, family, Instructed on discharge instructions, follow up and referral plans. Demonstrated understanding of instructions, follow-up care. 16:46 Patient left the ED. ld1 Signatures: Dispatcher [employer] EDMS Kedar Prieto MD MD rn Leal, Jahala, RN RN [id number] Lauren Shah RN RN ld1 Corrections: (The following items were deleted from the chart) 14:15 14:14 PMHx: Chronic obstructive lung disease; pk [place]
--- NOTE | 2022-08-22 16:34 | EDPHYS ---
Physician Documentation [facility] Name: Delonte Landaverde Age: 57 yrs Sex: Male : 1965 Arrival Date: 08/22/2022 Time: 14:04 Bed 20 Private MD: ED Physician Kedar Prieto HPI: 08/22 14:17 This 57 yrs old Male presents to ER via Ambulatory with complaints of Fall Injury. rn 14:17 Details of fall: The patient fell from an upright position, while walking. Onset: The rn symptoms/episode began/occurred just prior to arrival. Associated injuries: The patient sustained injury to the head, contusion. Severity of symptoms: At their worst the symptoms were mild, in the emergency department the symptoms are unchanged. The patient has experienced similar episodes in the past. The patient has not recently seen a physician. Family and EMS report fall when walking, "has balance issues", also had 10 beers today, hit face/head on sand, was in pain and difficult to calm down, so 911 called, no LOC. No blood thinners. Denies injury to extremities. . 14:17 Family reports no complaints prior to fall and "acts like this sometimes". . rn Historical: - Allergies: 14:14 No Known Allergies; jl7 - PMHx: 14:14 COPD; jl7 - Immunization history:: Adult Immunizations unknown. - Social history:: Smoking status: unknown Patient uses alcohol, on a daily basis. at least 10 beers per day. - Family history:: not pertinent. - Hospitalizations: : No recent hospitalization is reported. ROS: 14:17 Constitutional: Negative for fever, chills, and weight loss, Eyes: Negative for injury, rn pain, redness, and discharge, ENT: No oral trauma. Neck: Negative for injury, pain, and swelling, Cardiovascular: Negative for chest pain, palpitations, and edema, Respiratory: Negative for shortness of breath, cough, wheezing, and pleuritic chest pain, Abdomen/GI: Negative for abdominal pain, nausea, vomiting, diarrhea, and constipation, Back: Negative for injury and pain, : Negative for injury, bleeding, discharge, and swelling, MS/Extremity: Negative for injury and deformity, Skin: Negative for injury, rash, and discoloration, Neuro: Negative for weakness, numbness, tingling, and seizure. Exam: 14:17 Constitutional: This is a well developed, well nourished patient who is awake, rn mumbling, answers selectively to family-presented questions, not to mine even when I speak french. Smells heavily of ETOH Head/Face: Normocephalic, abrasion/contusion under right eye. Eyes: Pupils equal round and reactive to light, extra-ocular motions intact. ENT: dry MM, no oral injury Neck: No crepitus Chest/axilla: Normal chest wall appearance and motion. Nontender with no deformity. No lesions are appreciated. Cardiovascular: Tachycardic, reg rhythm. No pulse deficits. Respiratory: No increased work of breathing, no retractions or nasal flaring. + faint bilateral wheezing Abdomen/GI: Soft, non-tender Skin: Warm, dry MS/ Extremity: Pulses equal, no cyanosis. Neurovascular intact. Full, normal range of motion. Neuro: Awake and alert, GCS 15, oriented to person, place, not time. Cranial nerves II-XII grossly intact. Motor strength 5/5 in all extremities. Sensory grossly intact. 14:32 ECG was reviewed by the Attending Physician. rn Vital Signs: 14:20 BP 131 / 93; Pulse 90; Resp 18; Temp 98.3(TE); Pulse Ox 100% on Nebulizer Mask; Weight ld1 83.91 kg; Height 5 ft. 6 in. ; Pain 0/10; 14:38 BP 115 / 101; Pulse 102; Resp 18; Pulse Ox 100% on Nebulizer Mask; ld1 16:30 BP 151 / 125; Pulse 69; Resp 18; Pulse Ox 96% on R/A; ld1 14:20 Body Mass Index 29.86 (83.91 kg, 167.64 cm) ld1 14:20 Pain Scale: Adult ld1 MDM: 14:06 Patient medically screened. rn 16:29 Differential diagnosis: abrasion, closed head injury, contusion, fracture. Differential rn diagnosis: ETOH intoxication. Data reviewed: vital signs, nurses notes. Counseling: I had a detailed discussion with the patient and/or guardian regarding: the historical points, exam findings, and any diagnostic results supporting the discharge/admit diagnosis, lab results, radiology results, the need for outpatient follow up, to return to the emergency department if symptoms worsen or persist or if there are any questions or concerns that arise at home. Response to treatment: the patient's symptoms have markedly improved after treatment, and as a result, I will discharge patient. Special discussion: I discussed with the patient/guardian in detail that at this point there is no indication for admission to the hospital. It is understood, however, that if the symptoms persist or worsen the patient needs to return immediately for re-evaluation. ED course: Pt intoxicated with ETOH, imaging from trauma neg for acute traumatic findings. Family requests to leave now, states daily drinker and this is normal for him, states "never sober", and she feels comfortable taking him home. She states her family is in vehicle waiting outside since they came from [place] and she would like to take him home. Understands risks/benefits. Will dc home with return precautions. . 16:42 ED course: Pt ambulatory without assistance. . rn 08/22 14:08 Order name: CMP; Complete Time: 14:50 rn 08/22 14:08 Order name: Protime (+inr); Complete Time: 14:50 rn 08/22 14:08 Order name: Ptt, Activated; Complete Time: 14:50 rn 08/22 14:08 Order name: ETOH Level; Complete Time: 15:12 rn 08/22 14:21 Order name: Glucose, Ancillary Testing; Complete Time: 14:50 EDNH 08/22 14:08 Order name: CT Traumagram (Head C Spine CAP W Con); Complete Time: 15:27 rn 08/22 14:08 Order name: XRAY Chest (1 view); Complete Time: 15:12 rn 08/22 14:08 Order name: IV Start; Complete Time: 14:12 rn 08/22 14:08 Order name: EKG - Nurse/Tech; Complete Time: 14:12 rn 08/22 14:08 Order name: Glucose Level; Complete Time: 14:12 rn EC:32 Rate is 104 beats/min. Rhythm is regular. QRS [place] is Normal. [place] interval is normal. rn QRS interval is normal. QT interval is normal. No Q waves. T waves are Normal. No ST changes noted. Clinical impression: Sinus tachycardia. Interpreted by me. Reviewed by me. Administered Medications: 14:20 Drug: Levalbuterol Inhalation 1.25 mg Route: Inhalation; ld1 14:20 Drug: NS 0.9% IV 1000 ml Route: IV; Rate: 1000 ml; Site: right antecubital; ld1 Disposition Summary: 08/22/22 16:34 Discharge Ordered Location: Home rn Problem: new rn Symptoms: have improved rn Condition: Stable rn Diagnosis - Unspecified injury of head, initial encounter rn - Alcohol use, unspecified with intoxication, uncomplicated rn Followup: rn - With: Private Physician - When: As needed - Reason: Recheck today's complaints, Re-evaluation by your physician Discharge Instructions: - Discharge Summary Sheet rn - Alcohol Intoxication rn - Alcohol Use Disorder rn - Head Injury, Adult rn Forms: - Medication Reconciliation Form rn - Thank You Letter rn - Antibiotic furniture polisher - Prescription Opioid Use rn Signatures: Dispatcher [employer] EDMS Kedar Prieto MD MD rn Leal, Jahala, RN RN jl7 Lauren Shah RN RN ld1 Corrections: (The following items were deleted from the chart) 14:15 14:14 PMHx: Chronic obstructive lung disease; jl7 jl7 14:32 14:17 Constitutional: This is a well developed, well nourished patient who is awake, rn mumbling, answers selectively to family-presented questions, not to mine even when I speak french. Smells heavily of ETOH Head/Face: Normocephalic, abrasion/contusion under right eye. Eyes: Pupils equal round and reactive to light, extra-ocular motions intact. ENT: dry MM, no oral injury Neck: No crepitus Chest/axilla: Normal chest wall appearance and motion. Nontender with no deformity. No lesions are appreciated. Cardiovascular: Regular rate and rhythm. No pulse deficits. Respiratory: No increased work of breathing, no retractions or nasal flaring. + faint bilateral wheezing Abdomen/GI: Soft, non-tender Skin: Warm, dry MS/ Extremity: Pulses equal, no cyanosis. Neurovascular intact. Full, normal range of motion. Neuro: Awake and alert, GCS 15, oriented to person, place, not time. Cranial nerves II-XII grossly intact. Motor strength 5/5 in all extremities. Sensory grossly intact. rn
[2022-08-22 17:04] VITALS: TEMP 98.3
[2022-08-22 17:06] VITALS: BP 151/125; O2SAT 96
--- NOTE | 2022-08-24 14:40 | EKG ---
Test Date: 2022-08-22 Test Time: 14:10:30 Data Collection Specialist: NOHELIA MEASUREMENT RESULTS: Intervals: Rate: 104 IN: 136 QRSD: 82 QT: 342 QTc: 449 [place]: P: 56 IN: 136 QRS: 36 T: 34 INTERPRETIVE STATEMENTS: Sinus tachycardia Otherwise normal ECG No previous ECG available for comparison Electronically Signed On 08-24-22 14:38:10 CDT by Esvin Santana
== END 2022-08-22 16:46 | disposition home or self-care (01) ==
LOC: ER 14:04
DX: S09.90XA Unspecified injury of head, initial encounter (principal); F10.929 Alcohol use, unspecified with intoxication, unspecified; J44.9 Chronic obstructive pulmonary disease, unspecified
CPT/HCPCS: 36415; 70450; 71045; 71260; 72125; 74177; 80053; 82947; 85610; 85730; 93005; 99285; G0480; J7030; J7614; Q9967